=== PATIENT | female | born 1930 | race Caucasian/White ===

== ENCOUNTER 2018-12-09 18:15 | Outpatient (CLI) | payer MEDICARE, MEDICAID ==
--- NOTE | 2018-12-09 19:26 | RAD ---
Radiograph right knee 4 views: 12/09/2018 HISTORY: Chronic nontraumatic right knee pain in 88-year-old female FINDINGS: Joint spaces are maintained without erosions or osteophytes. No evidence of osteolytic, osteoblastic, or permeative lesion. No periostitis. No moderate sized or large joint effusion. No fracture. HISTORY: Negative
== END 2018-12-09 18:16 | disposition home or self-care (01) ==
LOC: BURRAD 18:15
PROVIDERS: ATTEND Family Medicine
DX: M25.561 Pain in right knee (principal); M25.461 Effusion, right knee

== ENCOUNTER 2019-03-17 14:49 | Outpatient (CLI) | payer MEDICARE, MEDICAID ==
--- NOTE | 2019-03-17 20:40 | RAD ---
ABDOMEN 03/17/19 Supine and erect films show no free air beneath the diaphragm. The abdominal gas pattern is normal bu t there is an abundance of fecal material in the colon. There is no al obstruction. No calcificati ons of concern were seen. Phleboliths are noted in the pelvis. There is some mild blunting of the left costophrenic angle which was not present on prior chest films . I cannot rule out a small left pleural effusion. IMPRESSION: 1. Mild constipation. 2. Possible small left pleural effusion. POS: HOME
== END 2019-03-17 14:50 | disposition home or self-care (01) ==
LOC: BURRAD 14:49
PROVIDERS: ATTEND Nurse Practitioner Family
DX: R10.12 Left upper quadrant pain (principal); K59.00 Constipation, unspecified
CPT/HCPCS: 74019

== ENCOUNTER 2020-02-29 16:06 | Outpatient (CLI) | payer MEDICARE, MEDICAID ==
[2020-02-29 16:26] LABS: Bilirubin Negative (Negative); Blood, Urine Moderate (Negative); Clarity Turbid (Clear); Glucose, Urine (Dipstick) Negative (Negative); Ketone, Urine Trace mg/dL (Negative); Leukocyte Large (Negative); Nitrite Negative (Negative); Protein, Urine (Dipstick) > or equal to 300 mg/dL (Neg-Trace); Urobilinogen 0.2 mg/dL (Less than 2); pH, Urine 8.5 (5.0-9.0)
[2020-02-29 16:32] LABS: Bacteria/HPF 4+ HPF (None Seen); Squamous Epithelial 0-3 HPF (0-3); WBC/HPF Greater Than 50 HPF (0-3)
[2020-02-29 16:34] LABS: Urine Culture Reflex Yes Yes
== END 2020-02-29 16:07 | disposition home or self-care (01) ==
LOC: BURMANOR 16:06
PROVIDERS: ATTEND Registered Nurse Community Health
DX: N39.0 Urinary tract infection, site not specified (principal)
CPT/HCPCS: 81001; 87070; 87077; 87086; 87186